=== PATIENT | male | born 1955 ===

== ENCOUNTER → 2025-01-24 08:19 | Outpatient (REF) | payer MEDICARE, SELFPAY ==
--- NOTE | 2025-01-17 10:37 | PN.DIAED02 ---
Referral
DSME Class Series Code: [id number]
Referred For: Diabetes Self-Management Training, Medical Nutrition Therapy, Self-Blood Glucose Monitoring, Long-Term Complication Instruction, Accute Complication Instruction, Continuous Glucose Monitoring, Medication management, Insulin
Instruction, Care Coordination, Disease Management
PHI Release Authorization Form Signed: Yes
Patient Problems:
Current Active Problems
Problem Status Onset
Type 2 diabetes mellitus with hyperglycemia
Type 2 diabetes mellitus with hyperglycemia
Demographic
(1) Type 2 diabetes mellitus with hyperglycemia
Status: Chronic Code(s): E11.65 - Type 2 diabetes mellitus with hyperglycemia
(2) Type 2 diabetes mellitus with hyperglycemia
Status: Acute Code(s): E11.65 - Type 2 diabetes mellitus with hyperglycemia
Patient's primary language-: Icelandic
Education: High school/GED
Occupation: Retired
- Social
Primary Support Person: Self
Primary Care Takers: Self
Living Arrangements: Self & spouse, Family
- Learning Methods
Preferred Method: Lecture/audio, Video
Barriers to Learning: None
Glycemic Control
- Blood Glucose Monitoring Assessment
Date: 01/17/25
Blood glucose monitoring at home: Yes
Monitor Brands: Other (Contour Next)
Frequency: 1x per day
Time: fasting, after lunch, after dinner
- Hyperglycemia Assessment
Experiences Hyperglycemia: Yes
Frequency: 1-3x per week
- Blood Glucose Monitoring Results
Source: log book (12/30 preprandial 179, 01/16 8:30pm 142, 01/11 598 random)
Medical History of Diabetes
Previous Diabetes Education: No
Previous visit with Dietitian: No
Complications/Comorbidity/Specialist: Hypertension (CLONIDINE 0.1 MG 1D, VALSARTAN 160 MG QD, FUROSEMIDE 40 MG QD), Hyperlipidemia (ATORVASTATIN 40 MG QD), Metabolic (DM2: METFORMIN 500 MG QD), Poor circulation (CLOPIDOGREL 75 MG QD), Other /
symptoms (GOUT: ALLOPURINOL 300 MG QD, CHRONIC SPOTANEOUS URTICARIA: ZOLAIR INJECTION [id number])
Measures
- Anthropometrics
Height: 5 ft 10 in
Actual Weight: 156 lb 9.6 oz
- Blood Pressure / Pulse
Blood pressure: 142/90 (DID NOT TAKE VALSARTAN YET TODAY)
Pulse: 90
- Diabetes Management
Medical Management for Diabetes: Complete physical exam (01/10/2025), Dental exam (12/01/2024), Dilated eye exam (10/28/2024), Monofilament testing (01/11/2025), Pneumonia vaccination, Other (VAX: RSV 08/24/23, COVID 02/11/21, 03/03/21, 10/15/21,
02/19/2022)
Self-Care
- Tobacco Usage
Do you now, or have you ever smoked?: Never smoked
- Alcohol & Drugs Usage
Drinks Alcohol: No
- Meals & Dining
Meals & Dining: Patient skips meals: Yes, Food Intolerance / Allergy: No, Cultural / [employer] Dietary Needs: No
Primary Food Peeler Operator: Self
Primary Parimutuel Ticket Checker: Self
Dining Out Frequency: 1-3x per week
- Physical Activity
Physical Limitation: No
Patient participates in physical Activity: No
- Self Foot-Care
Foot Problems: Neuropathy
Performs Self Foot-Exam: No
- Patient-Self Assessment
Diabetes Knowledge: Poor
Feelings About Diabetes: Overwhelmed / Confused
General Health: Good
Importance of Health: Extremely
Stress Level: Low
Diabetes Interferes With:: Other (PT DID NOT COMMENT)
Barriers to Diabetes Management: Nothing
Depression Survey Score: 1
- Diabetes Identification
Carries Diabetes Identification: No
Diabetes Identification Information Provided: Yes
Care Plan
- Education Needs
Patient Education Needs: Diabetes disease process, Chronic complications, Acute complications, Medication, Monitoring, Physical activity, Psychosocial Adjustment, Nutritional management, Goal setting & problem solving
Recommended Diabetes Training Program based on assessment: Outpatient Diabetes Education Program
- Plan of Care
Plan of Care:
01/17/2025 DIABETES EDUCATION - INITIAL APPOINTMENT PRIOR TO DSME CLASS
I met with Mr. Jurado for intial meeting prior to DSME class. He was at [facility] last week with BS 596 experiencing hyperglycemic symptoms of frequent thirst, dry skin, recent weight loss of 12 lbs. He followed up with PCP the day
after his ER visit, no HbA1c (from ER or PCP) ordered but will see PCP again at the end of January. He will contact our office with hospital lab report of HbA1c if available.
He has a 100% covered Contour Next glucometer, test strips and lancets and has been checking daily with reports to MD every week. BS has ranged 179 preprandial AM to 143 - 300 postprandial. Admits to no knowledge of T2D, educated on
pathophysiology of T2D vs. T1D, complications, importance of proper foot care and eye exams. I provided education on meaning of HbA1c, signs and symptoms of hypoglycemia and hyperglycemia, complications, and BS goals with eating if BS < 100 mg/dL
prior to exercise. Educated on signs of hypoglycemia and hypoglycemia protocol, he denies symptoms.
Educated on Metformin mechanism of action and potential side effects. Recommended continuation of SMGB once daily for 1-2 weeks, including preprandial AM and 2 hours post prandial with different meals and also documenting meal choices.
Asked patient to contact health insurer to discuss coverage and fees for DMSE class accredited by ADA, he states he did and was told it was coveredn. Encouraged him to contact insurance company again to discuss cost and ask if deductible and copay
apply. He verbalized understanding. Encouraged him to contact office before class with any concerns.
--- NOTE | 2025-01-17 12:01 | PN.DIAED04 ---
Education Record
- Education Record
Class Attended: Other (DSME INITIAL MEETING)
DSME Class Series Code: [id number]
Pre-Program Knowledge: Needs review / Assistance
Pre-Test Score (%): 35
Goals
- Goal 1
Being Active: Exercise 15 minutes-3 times per week
Goals To Be Evaluated: Exercise 15 mins-3x/week
- Goal 2
Healthy Eating: Make better food choices
Goals To Be Evaluated: Make better food choices
- Goal 3
Monitoring: Check blood sugar 4x daily-b4 breakfast/b4 lunch/b4 dinner/at bedtime, Follow monitoring schedule
Goals To Be Evaluated: Check blood sugar 4x/day. Follow monitoring times
--- NOTE | 2025-01-25 09:45 | PN.DIAED14 ---
This is to notify you that your patient with diabetes, Napoleon Jurado Sr ( 1955), has enrolled in our diabetes self-management classes that are being held at [facility].
These classes will include an introduction to diabetes, diet, medication, exercise and prevention of complications. At the end of our class series, you will receive a report of your patient's participation and progress for your records.
Please contact me at the Diabetes [facility], , if there is any particular information regarding your patient that might be helpful to me.
Sincerely,
Jose CHRISTIAN-GARRET,[facility]
--- NOTE | 2025-01-25 09:45 | PN.DIAED04 ---
Education Record
- Education Record
Class Attended: Class 1
DSME Class Series Code: [id number]
Instructor: Registered Nurse (Savi Gallego RN)
Class Curriculum:
Outpatient Diabetes Education Program:
Class 1 (120 minutes)
Describe the diabetes disease process and treatment options
Diabetes management
Develop personal strategies to promote health and behavior change
Integrate psychosocial adjustment for daily living
Monitor blood glucose and other parameters. Interpret and use the results for self-management decision making
Prevent, detect, and treat acute complications
Class Length (mins): 120
Post-Class 1 Test Score (%): 100
--- NOTE | 2025-01-27 09:09 | PN.DIAED06 ---
Meal Plans - Regular
- Meal Plan
Diabetic Meal Plan Name: 1800 calories
Breakfast - Total Carbohydrate (grams): 45
Breakfast - Starch Carbohydrate: 0
Breakfast - Fruit Carbohydrate: 0
Breakfast - Milk Carbohydrate: 0
Breakfast - Nonstarchy Vegetables: Yes
Breakfast - Meat/Protein: 1
Breakfast - Fat: 2
Morning Snack - Total Carbohydrate (grams): 15
Morning Snack - Starch Carbohydrate: 0
Morning Snack - Fruit Carbohydrate: 0
Morning Snack - Milk Carbohydrate: 0
Morning Snack - Nonstarchy Vegetables: Yes
Morning Snack - Meat/Protein: 0.5
Morning Snack - Fat: 0
Lunch - Total Carbohydrate (grams): 45
Lunch - Starch Carbohydrate: 0
Lunch - Fruit Carbohydrate: 0
Lunch - Milk Carbohydrate: 0
Lunch - Nonstarchy Vegetables: Yes
Lunch - Meat/Protein: 3
Lunch - Fat: 1
Afternoon Snack - Total Carbohydrate (grams): 15
Afternoon Snack - Starch Carbohydrate: 0
Afternoon Snack - Fruit Carbohydrate: 0
Afternoon Snack - Milk Carbohydrate: 0
Afternoon Snack - Nonstarchy Vegetables: Yes
Afternoon Snack - Meat/Protein: 0.5
Afternoon Snack - Fat: 0
Dinner - Total Carbohydrate (grams): 45
Dinner - Starch Carbohydrate: 0
Dinner - Fruit Carbohydrate: 0
Dinner - Milk Carbohydrate: 0
Dinner - Nonstarchy Vegetables: Yes
Dinner - Meat/Protein: 3
Dinner - Fat: 2
Evening Snack - Total Carbohydrate (grams): 15
Evening Snack - Starch Carbohydrate: 0
Evening Snack - Fruit Carbohydrate: 0
Evening Snack - Milk Carbohydrate: 0
Evening Snack - Nonstarchy Vegetables: Yes
Evening Snack - Meat/Protein: 0
Evening Snack - Fat: 0
== END ==
LOC: DES 08:19
PROVIDERS: ATTENDING PHYSICIAN Internal Medicine
DX: E11.65 Type 2 diabetes mellitus with hyperglycemia (principal)
CPT/HCPCS: 99078

== ENCOUNTER → 2025-01-31 08:23 | Outpatient (REF) | payer MEDICARE, SELFPAY ==
--- NOTE | 2025-02-01 09:44 | PN.DIAED04 ---
Education Record
- Education Record
Class Attended: Class 2
DSME Class Series Code: [id number]
Instructor: Registered Dietitian (Saima Patel, RD, LDN, CDE)
Class Curriculum:
Outpatient Diabetes Education Program:
Class 2 (120 minutes)
Incorporate nutritional management into lifestyle
Understanding nutritional value
Understanding carbohydrate counting
Class Length (mins): 120
== END ==
LOC: DES 08:23
PROVIDERS: ATTENDING PHYSICIAN Internal Medicine
DX: E11.65 Type 2 diabetes mellitus with hyperglycemia (principal)
CPT/HCPCS: 99078

== ENCOUNTER → 2025-02-07 08:03 | Outpatient (REF) | payer MEDICARE, SELFPAY ==
--- NOTE | 2025-02-08 08:40 | PN.DIAED04 ---
Education Record
- Education Record
Class Attended: Class 3
DSME Class Series Code: [id number]
Instructor: Registered Dietitian (Saima Patel, RD, LDN, CDE)
Class Curriculum:
Outpatient Diabetes Education Program:
Class 3 (120 minutes)
Incorporate nutritional management into lifestyle
Class Length (mins): 120
Post-Class 2 & 3 Test Score (%): 94
== END ==
LOC: DES 08:03
PROVIDERS: ATTENDING PHYSICIAN Internal Medicine
DX: E11.65 Type 2 diabetes mellitus with hyperglycemia (principal)
CPT/HCPCS: 99078

== ENCOUNTER → 2025-02-14 10:44 | Outpatient (REF) | payer MEDICARE, SELFPAY ==
--- NOTE | 2025-02-15 12:54 | PN.DIAED04 ---
Education Record
- Education Record
Class Attended: Class 4
DSME Class Series Code: [id number]
Instructor: Nurse Practitioner (ANAHI Castellano)
Class Curriculum:
Outpatient Diabetes Education Program:
Class 4 (120 minutes)
Develop personal strategies to promote health and behavior change
Incorporate physical activity into lifestyle
Utilize medications safety for maximum therapeutic effectiveness
Understand different medication/insulin mechanism of action
Preparing for travel
Class Length (mins): 120
Post-Class 4 Test Score (%): 87
== END ==
LOC: DES 10:44
PROVIDERS: ATTENDING PHYSICIAN Internal Medicine
DX: E11.65 Type 2 diabetes mellitus with hyperglycemia (principal)
CPT/HCPCS: 99078

== ENCOUNTER → 2025-02-21 13:49 | Outpatient (REF) | payer MEDICARE, SELFPAY ==
--- NOTE | 2025-02-24 10:14 | PN.DIAED04 ---
Education Record
- Education Record
Class Attended: Class 5
DSME Class Series Code: [id number]
Instructor: Nurse Practitioner (ANAHI Castellano)
Class Curriculum:
Outpatient Diabetes Education Program:
Class 5 (120 minutes)
Prevent, detect, and treat acute complications
Prevent, detect, and treat chronic complications through risk reduction
Develop personal strategies to address psychosocial issues and concerns
Development of diabetes self-management support plan
Letter to physician with DSMS plan attached sent
Class Length (mins): 120
Post-Program Knowledge: Demonstrates competency
Post-Test Score (%): 80
Post-Program Assessment
- Post-Program Assessment
Actual Weight: 253 lb
Blood pressure: 147/84
Post-Program Depression Survey Score: 2
Reviewing Previous Goals?: Yes
Pre-Program Depression Survey Score: 1
- Goals 1 Evaluation
Goals To Be Evaluated: Exercise 15 mins-3x/week
- Goals 2 Evaluation
Goals To Be Evaluated: Make better food choices
- Goals 3 Evaluation
Goals To Be Evaluated: Check blood sugar 4x/day. Follow monitoring times
--- NOTE | 2025-02-24 10:15 | PN.DIAED16 ---
This is to notify you that your patient with diabetes, Napoleon Jurado Sr ( 1955), has attended the entire series of Diabetes Self-Management Education Classes.
Class 1 (120 minutes): Diabetes Overview - monitoring, stress/psychosocial adjustment, support, goal setting
Class 2 (120 minutes): Meal Planning - serving sizes, menu plans
Class 3 (120 minutes): Introduction to Carbohydrate Counting, Analyzing Food Labels
Class 4 (120 minutes): Medication, Exercise and Activity
Class 5 (120 minutes): Sick Day Management, Strategies to Reduce Complications, Problem Solving, Resources
The following behavioral goals were identified:
Exercise 15 mins-3x/week
Make better food choices
Check blood sugar 4x/day
Follow monitoring times
A follow-up call will be made within three to six months to evaluate attainment of these goals and to check post-program Hemoglobin A1c and overall progress. All class participants are encouraged to contact me if I can be any further assistance in
learning how to manage their diabetes.
Sincerely,
Jose CHRISTIAN-GARRET, [facility]
== END ==
LOC: DES 13:49
PROVIDERS: ATTENDING PHYSICIAN Internal Medicine
DX: E11.65 Type 2 diabetes mellitus with hyperglycemia (principal)
CPT/HCPCS: 99078